=== PATIENT | male | born 1955 | race Caucasian/White ===

== ENCOUNTER 2016-11-28 09:40 | Emergency (ER) | payer OTHER ==
--- NOTE | 2016-11-28 09:42 | PDOC ---
History of Present Illness - General Chief Complaint: Injury Stated Complaint: FELL, STRUCK HEAD Time Seen by Provider: 11/28/16 09:42 History Source: Patient, Parent(s) Exam Limitations: No Limitations - History of Present Illness Initial Comments: 61 yo M history TBI, DM, chronic back pain presents s/p fall. He states that he was putting on his back brace this morning, slipped and fell as he was putting it on. He hit his head on an iron radiator. He c/o mild pain to the occiput. No new onset weakness, numbness. He has chronic slurred speech, RLE weakness, unchanged. No LOC, no neck pain, no nausea, no vomiting. Past History - Past Medical History Allergies/Adverse Reactions: Allergies Allergy/AdvReac Type Severity Reaction Status Date / Time No Known Allergies Allergy Verified 11/28/16 09:48 Home Medications: Ambulatory Orders Atorvastatin Ca [Lipitor] 10 mg PO HS 08/30/13 Cholecalciferol (Vitamin D3) [Vitamin D3] 1,000 unit PO DAILY 08/30/13 Divalproex [Depakote -] 1,000 mg PO BID 08/30/13 Sitagliptin Phos/Metformin HCl [Janumet 50-1,000 mg Tablet] 1 tab PO BID Ascorbate Calcium [Vitamin C] 500 mg PO DAILY 02/20/15 Acetaminophen [Tylenol Extra Strength] 500 mg PO Q6H PRN 11/28/16 Insulin Glargine,Hum.rec.anlog [Lantus Solostar PEN (NF)] 10 units SQ HS Insulin Glargine,Hum.rec.anlog [Lantus Solostar PEN (NF)] 30 ml SQ DAILY Nicotine Patch [Nicoderm Patch -] 1 patch TD DAILY 11/28/16 Anemia: No Asthma: No Cancer: No Cardiac Disorders: No CVA: No COPD: No CHF: No Dementia: No Diabetes: Yes GI Disorders: No Disorders: No HTN: No Hypercholesterolemia: Yes Liver Disease: No Seizures: Yes (14 years ago) Thyroid Disease: No - Surgical History Abdominal Surgery: Yes (HERNIA,FAMILY STATES PT HAD RIGHT FEM-POP BYPASS 1998?) Appendectomy: Yes Cardiac Surgery: No Cholecystectomy: No Lung Surgery: No Neurologic Surgery: No Orthopedic Surgery: Yes - Suicide/Smoking/Psychosocial Hx Smoking Status: Yes Smoking History: Current every day smoker Have you smoked in the past 12 months: Yes Number of Cigarettes Smoked Daily: 3 'Breaking Loose' booklet given: 09/02/13 Hx Alcohol Use: No Drug/Substance Use Hx: No Substance Use Type: None Hx Substance Use Treatment: No Review of Systems - Review of Systems Able to Perform ROS?: Yes Comments:: GENERAL/CONSTITUTIONAL: No fever or chills. No weakness. HEAD, EYES, EARS, NOSE AND THROAT: No change in vision. No ear pain or discharge. No sore throat. CARDIOVASCULAR: No chest pain or shortness of breath. RESPIRATORY: No cough, wheezing, or hemoptysis. GASTROINTESTINAL: No nausea, vomiting, diarrhea or constipation. GENITOURINARY: No dysuria, frequency, or change in urination. MUSCULOSKELETAL: No joint or muscle swelling or pain. No neck or back pain. SKIN: No rash NEUROLOGIC: Mild headache. No vertigo, loss of consciousness, or change in strength/sensation. ENDOCRINE: No increased thirst. No abnormal weight change. HEMATOLOGIC/LYMPHATIC: No anemia, easy bleeding, or history of blood clots. ALLERGIC/IMMUNOLOGIC: No hives or skin allergy. *Physical Exam - Physical Exam Comments: GENERAL: Awake, alert, and fully oriented, in no acute distress HEAD: No signs of trauma. +Tenderness to the occiput, no visible hematoma. EYES: PERRLA, EOMI, sclera anicteric, conjunctiva clear ENT: Auricles normal inspection, hearing grossly normal, nares patent, oropharynx clear without exudates. Moist mucosa NECK: Normal ROM, supple, no lymphadenopathy, JVD, or masses. No midline tenderness. LUNGS: Breath sounds equal, clear to auscultation bilaterally. No wheezes, and no crackles HEART: Regular rate and rhythm, normal S1 and S2, no murmurs, rubs or gallops ABDOMEN: Soft, nontender, normoactive bowel sounds. No guarding, no rebound. No masses EXTREMITIES: Normal range of motion, no edema. No clubbing or cyanosis. No cords , erythema, or tenderness NEUROLOGICAL: Cranial nerves II through XII grossly intact. Normal speech, normal gait SKIN: Warm, Dry, normal turgor, no rashes or lesions noted. Medical Decision Making - Medical Decision Making 11/28/16 11:22 CTH reviewed. No acute changes. +Encephalomalacia c/w prior history TBI. *DC/Admit/Observation/Transfer Diagnosis at time of Disposition: Head injury Qualifiers: Encounter type: initial encounter Qualified Code(s): S09.90XA - Unspecified injury of head, initial encounter - Discharge Dispostion Disposition: HOME Condition at time of disposition: Stable Admit: No - Referrals Referrals: Clay Maher MD [Primary Care Provider] - - Patient Instructions Printed Discharge Instructions: DI for Closed Head Injury
[2016-11-28 10:11] VITALS: BP 119/78; PULSE 89; TEMP 99; BMI 27.1
[2016-11-28] MEDS ORDERED: ACETAMINOPHEN 325 MG TABLET (FP) PO ONE (10:24)
[2016-11-28] MEDS ORDERED: ACETAMINOPHEN 325 MG TABLET (FP) ONE (10:26)
== END 2016-11-28 11:16 | disposition home or self-care (01) ==
LOC: FER 09:40
DX: S09.90XA Unspecified injury of head, initial encounter (principal); W18.39XA Other fall on same level, initial encounter; Y93.89 Activity, other specified; Y92.9 Unspecified place or not applicable; E11.9 Type 2 diabetes mellitus without complications; F17.210 Nicotine dependence, cigarettes, uncomplicated
CPT/HCPCS: 70450-TC; 99283-25

== ENCOUNTER 2016-12-16 12:02 | Emergency (ER) | payer OTHER ==
--- NOTE | 2016-12-16 12:08 | PDOC ---
History of Present Illness - General Chief Complaint: Injury Stated Complaint: BACK,BLE PAIN Time Seen by Provider: 12/16/16 12:08 History Source: Patient - History of Present Illness Initial Comments: 61 year old male with PMH of TBI (20 years prior residual retrograde and slight anterograde amnesia), DM, chronic back pain presents s/p fall. He tripped down two stairs in his home and landed on his right shoulder. Denied LOC , or head trauma. He was able to immediately get up and ambulate without difficulty. He is presenting today because he had difficulty walking after smoking while on the toilet this AM. His mother is his legal guardian because of his TBI deficits. His main complaint is back pain and leg pain but he admits that it is not actually worse than before. He has chronic slurred speech at baseline and is a poor historian. Denies fevers, chills, nausea, vomiting, diarrhea, or other sick symptoms. 12/16/16 13:51 Past History - Past Medical History Allergies/Adverse Reactions: Allergies Allergy/AdvReac Type Severity Reaction Status Date / Time No Known Allergies Allergy Verified 12/16/16 12:07 Home Medications: Ambulatory Orders Atorvastatin Ca [Lipitor] 10 mg PO HS 08/30/13 Cholecalciferol (Vitamin D3) [Vitamin D3] 1,000 unit PO DAILY 08/30/13 Divalproex [Depakote -] 1,000 mg PO BID 08/30/13 Sitagliptin Phos/Metformin HCl [Janumet 50-1,000 mg Tablet] 1 tab PO BID Ascorbate Calcium [Vitamin C] 500 mg PO DAILY 02/20/15 Acetaminophen [Tylenol Extra Strength] 500 mg PO Q6H PRN 11/28/16 Insulin Glargine,Hum.rec.anlog [Lantus Solostar PEN (NF)] 10 units SQ HS Insulin Glargine,Hum.rec.anlog [Lantus Solostar PEN (NF)] 30 ml SQ DAILY Nicotine Patch [Nicoderm Patch -] 1 patch TD DAILY 11/28/16 Anemia: No Asthma: No Cancer: No Cardiac Disorders: No CVA: No COPD: No CHF: No Dementia: No Diabetes: Yes GI Disorders: No Disorders: No HTN: No Hypercholesterolemia: Yes Liver Disease: No Psychiatric Problems: Yes (ANXIETY, DEPRESSION) Seizures: Yes (14 years ago) Thyroid Disease: No - Surgical History Abdominal Surgery: Yes (HERNIA,FAMILY STATES PT HAD RIGHT FEM-POP BYPASS 1998?) Appendectomy: Yes Cardiac Surgery: No Cholecystectomy: No Lung Surgery: No Neurologic Surgery: No Orthopedic Surgery: Yes - Suicide/Smoking/Psychosocial Hx Smoking Status: Yes Smoking History: Current every day smoker Have you smoked in the past 12 months: Yes Number of Cigarettes Smoked Daily: 3 'Breaking Loose' booklet given: 09/02/13 Hx Alcohol Use: No Drug/Substance Use Hx: No Substance Use Type: None Hx Substance Use Treatment: No Review of Systems - Review of Systems Constitutional: No: Chills, Fever HEENTM: No: Blurred Vision Respiratory: No: Cough Cardiac (ROS): No: Chest Pain, Edema ABD/GI: No: Constipated, Diarrhea, Nausea, Vomiting : No: Burning Integumentary: No: Bruising Neurological: No: Headache, Numbness, Paresthesia *Physical Exam - Physical Exam General Appearance: Yes: Nourished, Appropriately Dressed. No: Apparent Distress HEENT: positive: EOMI. negative: Normal Voice (Slurred speech) Neck: positive: Trachea midline, Normal Thyroid. negative: Tender Respiratory/Chest: positive: Lungs Clear. negative: Chest Tender, Normal Breath Sounds (Prolonged expiratory phase with mediocre air movement.), Respiratory Distress Cardiovascular: positive: Regular Rhythm, Regular Rate, S1, S2. negative: Murmur Gastrointestinal/Abdominal: positive: Normal Bowel Sounds, Flat, Soft. negative : Tender Musculoskeletal: positive: Vertebral Tenderness (L4-L5 vertebral tenderness). negative: Normal Inspection, CVA Tenderness Extremity: positive: Normal Inspection, Normal Range of Motion Integumentary: positive: Normal Color, Dry, Warm Neurologic: positive: housesmith II-XII NML intact, Alert, Normal Response, Motor Strength 5/5 Medical Decision Making - Medical Decision Making 61 year old male with neurocognitive disorder s/p TBI 20 years prior presenting one day after a fall down two stairs without LOC. CT head negative, L -S Spine film showing some L4 disk height loss with some L4-L5 degeneration with L5-S1 degeneration. No acute intervention needed. The patient was ambulatory without difficulty directly prior to discharge and without complaints. 12/16/16 16:28 *DC/Admit/Observation/Transfer Diagnosis at time of Disposition: Back pain at L4-L5 level Leg pain Qualifiers: Laterality: bilateral Qualified Code(s): M79.604 - Pain in right leg - Discharge Dispostion Disposition: HOME Condition at time of disposition: Improved Admit: No - Patient Instructions Printed Discharge Instructions: Low Back Pain Additional Instructions: Your Head CT did not show any bleeds or other acute problem. Your back XRay showed some possible compression between the L4 and L5 disks but this may be old findings. You were able to walk without difficulty. Please return if you are having worse pain, loss of control of your bowels or bladder or new numbness / tingling down your legs. Please follow up with your primary care physician if you have any more questions or concerns.
[2016-12-16 12:29] VITALS: BP 109/68; PULSE 92; TEMP 97.9; BMI 27.4
--- NOTE | 2016-12-16 12:42 | PDOC ---
Attending Attestation - Resident Resident Name: Carol Bustos - ED Attending Attestation I have performed the following: I have examined & evaluated the patient, The case was reviewed & discussed with the resident, I agree w/resident's findings & plan, Exceptions are as noted - HPI HPI: 12/16/16 12:38 61-year-old male with a distant history of TBI with some physical disability requiring cane/walker for ambulation, daily aide and under the care of his mother presents with low back pain after mechanical fall down 2 steps yesterday afternoon. He landed on knees and then upper extremities, no head injury or loss of consciousness. The patient was apparently at baseline for the remainder of the day, ambulating normally with his cane/walker and not requiring pain medication beyond his usual Tylenol. Today, patient was complaining of slightly increased low back pain and possible increased difficulty walking, but per aide and mother patient at baseline. no headache/vision change/speech change. no focal weakness. no n/v. - Physicial Exam PE: 12/16/16 12:40 vitals as noted, O2 sat 95% on my examination General: Patient is alert and in no acute distress. Speech is clear and appropriate. Head: Atraumatic and nontender. HEENT: Pupils are equal round and reactive to light, extraocular movements are intact. No facial deformity/tenderness, no septal hematoma. The oropharynx is clear. Neck: The trachea is midline, there is no stridor. There is no midline cervical spine tenderness, full range of motion of neck. Chest: Nontender, no ecchymosis or abrasions. Heart: S1-S2, regular rate and rhythm. No murmurs. Lungs: Clear to auscultation bilaterally. Symmetric chest rise. Abdomen: Soft/nontender/nondistended. Bowel sounds are normal. There is no abdominal or flank ecchymosis. Back/Pelvis: There is no midline spine tenderness or step-off. Pelvis is stable and nontender. Extremities: There is no extremity deformity or joint swelling. No focal bony tenderness throughout. 2+ distal pulses throughout. Neuro: Alert and oriented x3. Cranial nerves II through XII are intact. 5 out of 5 motor strength x4 extremities. Eswbor-ksen-wtzigf is intact. No pronator drift. Gait is stable. Skin: No abrasions/hematomas/lacerations. Psych: Affect is flat. - Medical Decision Making 12/16/16 12:41 61-year-old male with minor injury, complaining of low back pain but neurologically intact. Well-appearing, no evidence of fracture or neurological compromise. Check LS-spine film CT had given history to rule out subdural If above is within normal limits, can be discharged in care of aide and mom. All in agreement. 12/16/16 13:52 ambulating at baseline, neuro intact. ? decreased body height of L4, not commented on previous MRI. CT head without acute pathology. mom and aide at bedside, they and patient want to go home, feels well. Understands return criteria, will f/u with pmd for any pain control needs.
== END 2016-12-16 13:55 | disposition home or self-care (01) ==
LOC: FER 12:02
DX: M79.604 Pain in right leg (principal); S06.9X0A Unspecified intracranial injury without loss of consciousness, initial encounter; R47.81 Slurred speech; E78.00 Pure hypercholesterolemia, unspecified; F41.8 Other specified anxiety disorders; E11.9 Type 2 diabetes mellitus without complications; F17.210 Nicotine dependence, cigarettes, uncomplicated; W10.9XXA Fall (on) (from) unspecified stairs and steps, initial encounter; Y93.89 Activity, other specified; Y92.9 Unspecified place or not applicable
CPT/HCPCS: 70450-TC; 72100-TC; 99281-25

== ENCOUNTER 2016-12-19 10:10 | Inpatient (IN) | payer OTHER ==
--- NOTE | 2016-12-19 10:25 | PDOC ---
History of Present Illness - General Chief Complaint: Weakness Stated Complaint: WEAKNESS Time Seen by Provider: 12/19/16 10:13 History Source: Patient, Care Provider Exam Limitations: Clinical Condition - History of Present Illness Initial Comments: 12/19/16 11:08 61M with pmh of Traumatic Brain Injury and DM2. Caregiver Nurse called EMS after she found him with altered mental status, taking a bath on his own, and with fan broken on the floor. Patient can usually get out of the bathtub with her help but wasn't able to do so this time which worried her and called AMS. Patient usually has caregiver 9 hours a day but was left on his own all day yesterday. Caregiver states that she prepared food for him the day before yesterday that was left untouched and he also didn't take any of his medication yesterday and today. Patient on metformin and depakote 12/19/16 11:37 Past History - Past Medical History Allergies/Adverse Reactions: Allergies Allergy/AdvReac Type Severity Reaction Status Date / Time No Known Allergies Allergy Verified 12/19/16 10:12 Home Medications: Ambulatory Orders Atorvastatin Ca [Lipitor] 10 mg PO HS 08/30/13 Cholecalciferol (Vitamin D3) [Vitamin D3] 1,000 unit PO DAILY 08/30/13 Divalproex [Depakote -] 500 mg PO BID 08/30/13 Acetaminophen [Tylenol Extra Strength] 500 mg PO Q6H PRN 11/28/16 Insulin Glargine,Hum.rec.anlog [Lantus Solostar PEN (NF)] 10 units SQ HS Insulin Glargine,Hum.rec.anlog [Lantus Solostar PEN (NF)] 30 ml SQ DAILY Metformin HCl [Glucophage] 1,000 mg PO BID 12/19/16 Anemia: No Asthma: No Cancer: No Cardiac Disorders: No CVA: No COPD: No CHF: No Dementia: No Diabetes: Yes GI Disorders: No Disorders: No HTN: No Hypercholesterolemia: Yes Liver Disease: No Psychiatric Problems: Yes (ANXIETY, DEPRESSION) Seizures: Yes (14 years ago) Thyroid Disease: No - Surgical History Abdominal Surgery: Yes (HERNIA,FAMILY STATES PT HAD RIGHT FEM-POP BYPASS 1998?) Appendectomy: Yes Cardiac Surgery: No Cholecystectomy: No Lung Surgery: No Neurologic Surgery: No Orthopedic Surgery: Yes - Suicide/Smoking/Psychosocial Hx Smoking Status: Yes Smoking History: Unknown if ever smoked Have you smoked in the past 12 months: Yes Number of Cigarettes Smoked Daily: 3 'Breaking Loose' booklet given: 09/02/13 Hx Alcohol Use: No Drug/Substance Use Hx: No Substance Use Type: None Hx Substance Use Treatment: No Review of Systems - Review of Systems Able to Perform ROS?: No (limited due to ams) ABD/GI: No: Symptoms Reported : No: Symptoms Reported Musculoskeletal: No: Symptoms Reported All Other Systems: Reviewed and Negative *Physical Exam - Vital Signs Last Vital Signs Temp Pulse Resp BP Pulse Ox 98.8 F 88 16 113/75 99 12/19/16 10:10 12/19/16 10:10 12/19/16 10:10 12/19/16 10:10 12/19/16 10:10 - Physical Exam General Appearance: Yes: Nourished, Appropriately Dressed. No: Apparent Distress HEENT: positive: EOMI, ELISEO Neck: positive: Tender Respiratory/Chest: positive: Lungs Clear, Normal Breath Sounds. negative: Chest Tender Cardiovascular: positive: Regular Rhythm, Regular Rate, S1, S2 Vascular Pulses: Dorsalis-Pedis (R): 2+, Doralis-Pedis (L): 2+ Gastrointestinal/Abdominal: positive: Normal Bowel Sounds, Flat. negative: Tender Musculoskeletal: positive: Normal Inspection Integumentary: positive: Normal Color, Dry. negative: Erythema, Rash Neurologic: negative: Fully Oriented, Alert ED Treatment Course - LABORATORY CBC & Chemistry Diagram: 12/19/16 11:30 12/19/16 11:30 Medical Decision Making - Medical Decision Making 12/19/16 11:33 61M with pmh of Traumatic Brain Injury and DM2 presents with AMS and questionable fall. Evaluation of stroke vs infection vs hypo/hyperglycemia Fingerstick [address] St[address] score [address] pending CBC, CMP CRX pending UA pending Patient will probablky have to be kept for neuro observation and get MRI 12/19/16 11:33 *DC/Admit/Observation/Transfer Diagnosis at time of Disposition: Rhabdomyolysis, Altered mental status - Discharge Dispostion Condition at time of disposition: Stable Admit: Yes - Referrals Referrals: Andrew Mcbride MD [Primary Care Provider] -
--- NOTE | 2016-12-19 11:10 | PDOC ---
Attending Attestation - Resident Resident Name: Demar Orellana - ED Attending Attestation I have performed the following: I have examined & evaluated the patient, The case was reviewed & discussed with the resident, I agree w/resident's findings & plan, Exceptions are as noted - HPI HPI: 12/19/16 11:05 61-year-old male with past medical history of diabetes, traumatic brain injury on risperidone and Depakote, chronic back pain presents with questionable fall on ground. According to the home health aide, the patient appears more confused and lethargic and potentially slurring his speech than prior. She states that home health services are typically not hours per day but she was unavailable testicular the patient yesterday. The patient was here at the hospital on December [address] head [address] and lumbar spine x-ray done for fall and the patient was discharged. According to the home health aide, the patient was in his usual state health. This morning, the patient was found by the home health aide in the bathtub and with a nearby fan that was smashed. The patient is an unreliable historian and there was question whether not he fell. The patient is AAO 2 and thinks it is 1982. Patient at this time has no complaints area denies fevers, chills, nausea, vomiting, diarrhea. The home health aide attempted to take the patient out of the bathtub but was unable to do so and called 911. - Physicial Exam PE: 12/19/16 11:12 GENERAL: Awake, alert, and oriented x 2 (thinks it's 1982) , in no acute distress. HEAD: No signs of trauma EYES: PERRLA, EOMI, sclera anicteric, conjunctiva clear ENT: Auricles normal inspection, hearing grossly normal, nares patent NECK: Normal ROM, supple, LUNGS: Breath sounds equal, clear to auscultation bilaterally. No wheezes, and no crackles HEART: Regular rate and rhythm, normal S1 and S2, no murmurs, rubs or gallops ABDOMEN: Soft, nontender, normoactive bowel sounds. No guarding, no rebound. No masses EXTREMITIES: Normal range of motion, no edema. No clubbing or cyanosis. No cords, erythema, or tenderness NEUROLOGICAL: Cranial nerves II through XII intact. Speech slow but no obvious slurring. 5/5 strength upper and lower extremities. Sensation intact throughout. FTN normal. Rapid alternating normal. Essential tremors. SKIN: Warm, Dry, normal turgor, no rashes or lesions noted. - Medical Decision Making 12/19/16 11:19 Vital Signs Temp Pulse Resp BP Pulse Ox 98.8 F 88 16 113/75 99 12/19/16 10:10 12/19/16 10:10 12/19/16 10:10 12/19/16 10:10 12/19/16 10:10 61-year-old male with traumatic brain injury and diabetes presents with altered mental status. The patient was left alone yesterday until today. The patient has not been taking his medications nor has he been eating without his home health aide. Today, there was question that he may have fallen. The patient appears according to his home health aide to be slurring his speech. At this time, differential includes infectious etiology such as urinary tract infection , metabolic disarray such as hypo-or hyperglycemia or electrolyte disturbances, cardiac, neurologic including stroke. Time of onset is unclear and not today. He is in eligible for TPA. At this time, we'll obtain a head CT, chest x-ray, labs, urinalysis. Ultimately, the patient is not safe for discharge and would benefit for a stroke and altered mental status workup in the hospital. 12/19/16 12:51 CBC, BMP 12/19/16 11:30 12/19/16 11:30 CMP Sodium 129 mmol/L (136-145) L 12/19/16 11:30 Potassium 4.5 mmol/L (3.5-5.1) 12/19/16 11:30 Chloride 95 mmol/L (98-107) L 12/19/16 11:30 Carbon Dioxide 25 mmol/L (22-28) 12/19/16 11:30 Anion Gap 9 (8-16) 12/19/16 11:30 BUN 11 mg/dl (7-18) D 12/19/16 11:30 Creatinine 0.8 mg/dl (0.6-1.3) D 12/19/16 11:30 Creat Clearance w eGFR > 60 (>60) 12/19/16 11:30 Random Glucose 133 mg/dl (74-106) H 12/19/16 11:30 Calcium 10.2 mg/dl (8.4-10.2) 12/19/16 11:30 Total Bilirubin 1.0 mg/dl (0.2-1.0) 12/19/16 11:30 AST 51 U/L (10-42) H D 12/19/16 11:30 ALT 25 U/L (10-40) D 12/19/16 11:30 Alkaline Phosphatase 59 U/L (32-92) D 12/19/16 11:30 Creatine Kinase 2141 IU/L (39-308) H 12/19/16 11:30 Creatine Kinase Index 0.7 % (0.0-5.0) 12/19/16 11:30 CK-MB (CK-2) 15.2 ng/mL (0.3-4.0) H 12/19/16 11:30 Troponin I 0.05 ng/ml (0.03-0.50) 12/19/16 11:30 Total Protein 7.5 g/dl (6.4-8.3) 12/19/16 11:30 Albumin 4.2 g/dl (3.5-5.0) 12/19/16 11:30 Valproic acid level pending. Head CT reviewed. Demonstrates enlarged ventricles. I have spoken with the patient family. She reports that in the last two months, the patient has become increasingly more confused and increasingly difficulty walking in the last 2 months. Given the head CT findings, will need to consider normal pressure hydrocephalus. Dr. Orellana had called the pt's PMD Dr. Mcbride and is updated on plan. 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 Should consider potential stroke within the differential. Pt will be admitted to the hospital for further workup. Heart Score/ECG Review #1 ECG reviewed & interpreted by me at: 11:00 12/19/16 11:04 NSR 82, no std/liliane, normal axis, normal intervals, QTC 432 msec. no brugada, no HOCM, no WPW NIH Stroke Scale - Last Known Well Date/Time & Onset Date Last Known Well: 12/17/16 - Initial Evaluation Level of consciousness: Alert Ask patient the month and their age: Answers one correctly Ask patient to open & close eyes; make fist and let go: Obeys both correctly Best gaze (horizontal eye movement): Normal Visual field testing: No visual field loss Facial paresis (Show teeth/raise eyebrows/close eyes tight): Normal symmetrical movement Motor Function: Left Arm: Normal Motor Function: Right Arm: Normal (extends arm 90 (or 45) degrees for 10 seconds without drift Motor Function: Left Leg: Normal (extends leg 30 degrees for 5 seconds without drift) Motor Function: Right Leg: Normal (extends leg 30 degrees for 5 seconds without drift) Limb Ataxia: No ataxia Sensory(Use pinprick test arms,legs,trunk,face/side to side): Normal Best language (Describe picture, name items, read sentences): No Aphasia Dysarthria (read several words): Mild to moderate slurring of words Extinction and Inattention: No abnormality - Total Score NIH Stroke Scale Score: 2
[2016-12-19 11:49] LABS: BASOPHIL 0.6 % (0-2.0); EOSINOPHIL 0.3 % (0-4.5); MCH 31.4 pg (25.7-33.7); MCHC 33.7 g/dl (32.0-35.9); MEAN PLT VOLUME 9.2 fl (7.5-11.1); NEUTROPHILS 75.8 % (42.8-82.8); PLATELET COUNT 336 K/MM3 (134-434); RDW 12.4 % (11.9-15.9); WHITE BLOOD COUNT 11.1 K/mm3 (4.0-10.8)
[2016-12-19 11:59] LABS: ALBUMIN 4.2 g/dl (3.5-5.0); ALK PHOS 59 U/L (32-92); ANION GAP 9 (8-16); CALCIUM 10.2 mg/dl (8.4-10.2); CO2 25 mmol/L (22-28); CREATININE 0.8 mg/dl (0.6-1.3); GLUCOSE,RANDOM 133 mg/dl (74-106); SGOT/AST 51 U/L (10-42); SGPT/ALT 25 U/L (10-40); TOT PROT 7.5 g/dl (6.4-8.3)
[2016-12-19 12:13] LABS: TROPONIN I (DFP) 0.05 ng/ml (0.03-0.50)
[2016-12-19] MEDS ORDERED: SODIUM CHLORIDE 1,000 ML IV STA ×2 (12:24→14:02)
[2016-12-19 12:28] LABS: CPK 2141 IU/L (39-308)
[2016-12-19] MEDS ORDERED: NICOTINE 21 MG/24 HOURS TOPICAL PATCH TD SCH ×2 (13:30→16:30)
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
[2016-12-19] MEDS ORDERED: HALOPERIDOL LACTATE 5 MG/ML IM ONE (14:09)
[2016-12-19] MEDS ORDERED: HALOPERIDOL LACTATE 5 MG/ML ONE (14:11)
[2016-12-19] MEDS ORDERED: LORazepam 2 MG/ML SDV VIAL ONE (14:12)
[2016-12-19 15:23] LABS: URINE APPEARANCE Clear; URINE BILIRUBIN Negative (NEGATIVE); URINE BLOOD Negative (NEGATIVE); URINE GLUCOSE (UA) 2+ (NEGATIVE); URINE KETONE 1+ (NEGATIVE); URINE LEUK ESTERASE Negative (NEGATIVE); URINE NITRITE Negative (NEGATIVE); URINE PROTEIN Negative (NEGATIVE)
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
[2016-12-19 15:36] LABS: URINE COLOR YELLOW
[2016-12-19 16:49] VITALS: BMI 28.2
[2016-12-19] MEDS ORDERED: INSULIN (NOVOLOG) ASPART 100 UNITS/ML 10ML VIAL ONE ×2 (17:06→21:32)
[2016-12-19] MEDS: INSULIN SLIDING SCALE (NOVOLOG) 1 VIAL SQ SCH ×2 (17:08→21:31)
[2016-12-19] MEDS: SODIUM CHLORIDE 1,000 ML IV SCH (17:15)
[2016-12-19 18:26] LABS: TROPONIN I (DFP) 0.05 ng/ml (0.03-0.50)
[2016-12-19 18:33] LABS: URINE MARIJUANA THC NEGATIVE ng/ml (CUTOFF=50)
[2016-12-19] MEDS: DIVALPROEX SODIUM 500 MG TABLET E.C. PO SCH (21:29)
[2016-12-19] MEDS: INSULIN DETEMIR 100 UNITS/ML MDV SQ SCH (21:30)
[2016-12-19] MEDS: HEPARIN NA (PORCINE) 5,000 UNITS/ML 1ML VIAL SQ SCH (21:30)
[2016-12-19] MEDS ORDERED: ATORVASTATIN CA 10 MG TABLET (FP) PO SCH (22:00)
[2016-12-19] MEDS ORDERED: PATIENT'S OWN MEDICATION (NON-FORMULARY) (Insulin Glargine,Hum.Rec.Anlog 10 UNITS) SQ SCH (22:00)
[2016-12-19 23:48] LABS: TROPONIN I (DFP) 0.05 ng/ml (0.03-0.50)
[2016-12-20] MEDS: INSULIN SLIDING SCALE (NOVOLOG) 1 VIAL SQ SCH ×4 (06:25→22:29)
[2016-12-20 07:44] LABS: EOSINOPHIL 2.2 % (0-4.5); MCH 31.4 pg (25.7-33.7); MCHC 33.4 g/dl (32.0-35.9); MEAN PLT VOLUME 9.4 fl (7.5-11.1); NEUTROPHILS 55.6 % (42.8-82.8); PLATELET COUNT 273 K/MM3 (134-434); WHITE BLOOD COUNT 8.4 K/mm3 (4.0-10.8)
[2016-12-20 07:47] LABS: INR 1.13 (0.82-1.09); PROTHROMBIN TIME (PATIENT) 12.6 SEC (10.2-13.0)
[2016-12-20 08:12] LABS: ALBUMIN 3.2 g/dl (3.5-5.0); ALK PHOS 47 U/L (32-92); ANION GAP 7 (8-16); BILIRUBIN,TOTAL 0.6 mg/dl (0.2-1.0); CALCIUM 8.9 mg/dl (8.4-10.2); CHOLESTEROL 142 mg/dl; CO2 24 mmol/L (22-28); CREATININE 0.8 mg/dl (0.6-1.3); GLUCOSE,RANDOM 108 mg/dl (74-106); MAGNESIUM 1.7 mg/dL (1.8-2.4); PHOSPHOROUS 3.4 mg/dl (2.5-4.6); SGOT/AST 31 U/L (10-42); SGPT/ALT 21 U/L (10-40); TOT PROT 6.1 g/dl (6.4-8.3)
[2016-12-20] MEDS ORDERED: INSULIN GLARGINE SQ SCH (10:00)
[2016-12-20] MEDS ORDERED: NICOTINE 14 MG/24 HOURS TOPICAL PATCH TD SCH (10:00)
[2016-12-20] MEDS: INSULIN DETEMIR 100 UNITS/ML MDV SQ SCH ×2 (10:50→22:29)
[2016-12-20] MEDS: CHOLECALCIFEROL (VITAMIN D3) 1,000 UNIT TABLET (FP) PO SCH (10:51)
[2016-12-20] MEDS: HEPARIN NA (PORCINE) 5,000 UNITS/ML 1ML VIAL SQ SCH ×2 (10:51→22:29)
[2016-12-20] MEDS: RANITIDINE HCL 150 MG TABLET (FP) PO SCH (10:51)
[2016-12-20] MEDS: ASPIRIN COATED 81 MG TABLET.EC PO SCH (10:51)
[2016-12-20] MEDS: DIVALPROEX SODIUM 500 MG TABLET E.C. PO SCH ×2 (10:51→22:29)
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
[2016-12-20] MEDS ORDERED: INSULIN (NOVOLOG) ASPART 100 UNITS/ML 10ML VIAL ONE ×2 (13:54→22:36)
[2016-12-20] MEDS ORDERED: MAGNESIUM SULF 50% (8.12 MEQ/2 ML-1 GM VIAL) IVPB ONE (14:30)
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
[2016-12-20] MEDS: SODIUM CHLORIDE 1,000 ML IV SCH (16:00)
[2016-12-21] MEDS: INSULIN SLIDING SCALE (NOVOLOG) 1 VIAL SQ SCH ×4 (06:16→21:28)
[2016-12-21 09:10] LABS: BASOPHIL 0.3 % (0-2.0); EOSINOPHIL 2.8 % (0-4.5); MCH 31.7 pg (25.7-33.7); MCHC 33.8 g/dl (32.0-35.9); MEAN CELL VOLUME 93.8 fl (80-96); MEAN PLT VOLUME 9.8 fl (7.5-11.1); NEUTROPHILS 50.7 % (42.8-82.8); PLATELET COUNT 270 K/MM3 (134-434); RDW 12.9 % (11.9-15.9); WHITE BLOOD COUNT 8.5 K/mm3 (4.0-10.8)
[2016-12-21 09:29] LABS: ALBUMIN 3.2 g/dl (3.5-5.0); ALK PHOS 46 U/L (32-92); ANION GAP 4 (8-16); BILIRUBIN,TOTAL 0.6 mg/dl (0.2-1.0); CALCIUM 9.1 mg/dl (8.4-10.2); CO2 27 mmol/L (22-28); CREATININE 0.8 mg/dl (0.6-1.3); GLUCOSE,RANDOM 83 mg/dl (74-106); MAGNESIUM 1.8 mg/dL (1.8-2.4); SGOT/AST 27 U/L (10-42); SGPT/ALT 20 U/L (10-40); TOT PROT 5.9 g/dl (6.4-8.3)
[2016-12-21] MEDS: RANITIDINE HCL 150 MG TABLET (FP) PO SCH (11:02)
[2016-12-21] MEDS: CHOLECALCIFEROL (VITAMIN D3) 1,000 UNIT TABLET (FP) PO SCH (11:02)
[2016-12-21] MEDS ORDERED: risperiDONE 0.5 MG TABLET (FP) PO PRN (11:02)
[2016-12-21] MEDS: ASPIRIN COATED 81 MG TABLET.EC PO SCH (11:02)
[2016-12-21] MEDS: HEPARIN NA (PORCINE) 5,000 UNITS/ML 1ML VIAL SQ SCH ×2 (11:03→21:27)
[2016-12-21] MEDS: INSULIN DETEMIR 100 UNITS/ML MDV SQ SCH ×2 (11:03→21:27)
[2016-12-21] MEDS: DIVALPROEX SODIUM 500 MG TABLET E.C. PO SCH ×2 (11:03→21:27)
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
[2016-12-21] MEDS: ACETAMINOPHEN 500 MG TABLET (FP) PO PRN (11:19)
[2016-12-21 11:23] LABS: THYROID STIMULATING HORMONE 1.06 uIU/ml (0.358-3.74)
[2016-12-21] MEDS ORDERED: SODIUM CHLORIDE 1,000 ML IV SCH ×2 (11:34→15:51)
[2016-12-21] MEDS ORDERED: risperiDONE 0.25 MG TABLET (FP) PO PRN (11:50)
[2016-12-21 14:47] LABS: CPK 457 IU/L (39-308)
[2016-12-21] MEDS ORDERED: HALOPERIDOL LACTATE 5 MG/ML IM ONE (15:48)
[2016-12-21] MEDS ORDERED: INSULIN (NOVOLOG) ASPART 100 UNITS/ML 10ML VIAL ONE (21:23)
[2016-12-22] MEDS: ACETAMINOPHEN 500 MG TABLET (FP) PO PRN (00:26)
[2016-12-22] MEDS: INSULIN SLIDING SCALE (NOVOLOG) 1 VIAL SQ SCH ×3 (06:57→17:08)
[2016-12-22] MEDS: DIVALPROEX SODIUM 500 MG TABLET E.C. PO SCH (09:39)
[2016-12-22] MEDS: HEPARIN NA (PORCINE) 5,000 UNITS/ML 1ML VIAL SQ SCH (09:39)
[2016-12-22] MEDS: ASPIRIN COATED 81 MG TABLET.EC PO SCH (09:39)
[2016-12-22] MEDS: RANITIDINE HCL 150 MG TABLET (FP) PO SCH (09:40)
[2016-12-22] MEDS: CHOLECALCIFEROL (VITAMIN D3) 1,000 UNIT TABLET (FP) PO SCH (09:40)
[2016-12-22] MEDS: INSULIN DETEMIR 100 UNITS/ML MDV SQ SCH (09:40)
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
[2016-12-22] MEDS ORDERED: INSULIN (NOVOLOG) ASPART 100 UNITS/ML 10ML VIAL ONE ×2 (11:37→17:06)
[2016-12-22] MEDS ORDERED: PNEUMOCOCCAL 23 VACCINE 0.5 ML VIAL IM ONE (13:15)
[2016-12-22 16:56] VITALS: BP 130/78; PULSE 72; TEMP 9707
--- NOTE | 2016-12-23 18:36 | EKG ---
Test Reason : Blood Pressure : / mmHG Vent. Rate : 082 BPM Atrial Rate : 082 BPM P-R Int : 186 ms QRS Dur : 080 ms QT Int : 370 ms P-R-T Axes : 054 028 050 degrees QTc Int : 432 ms NORMAL SINUS RHYTHM NORMAL ECG NO PREVIOUS ECGS AVAILABLE REPEAT EKG IF CLINICALLY INDICATED Confirmed by FELIZ GOULD MD ([id number]) on 12/23/2016 6:35:53 PM Referred By: RACHEL FELICIANO Confirmed By:FELIZ GOULD MD
== END 2016-12-22 18:12 | DRG 557 ==
LOC: FER 10:10 → FM/S 13:42
PROVIDERS: ADMIT Internal Medicine; ATTEND Nurse Practitioner Family
DX: M62.82 Rhabdomyolysis (principal); G93.41 Metabolic encephalopathy; E87.1 Hypo-osmolality and hyponatremia; G40.89 Other seizures; E86.1 Hypovolemia; E11.9 Type 2 diabetes mellitus without complications; Z79.4 Long term (current) use of insulin; Z87.820 Personal history of traumatic brain injury; E78.5 Hyperlipidemia, unspecified; F32.9 Major depressive disorder, single episode, unspecified; F41.9 Anxiety disorder, unspecified; F17.210 Nicotine dependence, cigarettes, uncomplicated; R29.6 Repeated falls
CPT/HCPCS: 36415; 70450-TC; 71010-TC; 72100-TC; 80053; 80061; 80164; 80307; 81003; 82140; 82533; 82550; 82553; 82607; 83036; 83721; 83735; 83874; 84100; 84443; 84484; 85025; 85610; 87086; 93005; 93306-TC; 93880-TC; 97116-GP; 99281-25; 99285-25; J1644

== ENCOUNTER 2017-01-14 14:52 | Emergency (ER) | payer OTHER ==
[2017-01-14 15:36] VITALS: TEMP 98.3; BMI 27.4
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
[2017-01-14 17:13] LABS: EOSINOPHIL 2.5 % (0-4.5); MCH 31.9 pg (25.7-33.7); MEAN CELL VOLUME 93.9 fl (80-96); MEAN PLT VOLUME 8.9 fl (7.5-11.1); NEUTROPHILS 57.7 % (42.8-82.8); PLATELET COUNT 275 K/MM3 (134-434); RDW 13.5 % (11.9-15.9)
[2017-01-14] MEDS ORDERED: HALOPERIDOL DECANOATE 100 MG/ML IM ONE (17:31)
[2017-01-14] MEDS ORDERED: HALOPERIDOL LACTATE 5 MG/ML ONE ×2 (17:33→19:54)
[2017-01-14 17:50] LABS: ALBUMIN 3.7 g/dl (3.4-5.0); ALK PHOS 70 U/L (45-117); ANION GAP 4 (8-16); BILIRUBIN,TOTAL 0.3 mg/dL (0.2-1.0); CALCIUM 9.2 mg/dL (8.5-10.1); CO2 30 mmol/L (21-32); CREATININE 1.1 mg/dL (0.7-1.3); GLUCOSE,RANDOM 193 mg/dL (74-106); SGOT/AST 10 U/L (15-37); SGPT/ALT 18 U/L (12-78); TOT PROT 7.5 g/dl (6.4-8.2)
[2017-01-14 17:55] LABS: URINE APPEARANCE CLEAR; URINE BILIRUBIN NEGATIVE (NEGATIVE); URINE BLOOD NEGATIVE (NEGATIVE); URINE COLOR STRAW; URINE GLUCOSE (UA) 1+ (NEGATIVE); URINE KETONE NEGATIVE (NEGATIVE); URINE NITRITE NEGATIVE (NEGATIVE); URINE PROTEIN NEGATIVE (NEGATIVE); URINE UROBILINOGEN NEGATIVE mg/dL (0.2-1.0)
[2017-01-14 18:46] VITALS: BP 130/88; PULSE 64
[2017-01-14] MEDS ORDERED: HALOPERIDOL LACTATE 5 MG/ML IM ONE (19:35)
[2017-01-14 21:00] LABS: URINE LEUK ESTERASE Negative (NEGATIVE)
--- NOTE | 2017-01-15 21:55 | EKG ---
Test Reason : Blood Pressure : / mmHG Vent. Rate : 074 BPM Atrial Rate : 074 BPM P-R Int : 208 ms QRS Dur : 076 ms QT Int : 378 ms P-R-T Axes : 054 019 042 degrees QTc Int : 419 ms SINUS RHYTHM WITH 1ST DEGREE A-V BLOCK WITH OCCASIONAL and consecutive PREMATURE VENTRICULAR COMPLEXES ABNORMAL ECG WHEN COMPARED WITH ECG OF 19-DEC-2016 11:03, [place] INTERVAL HAS INCREASED Confirmed by BONNIE VERDE, LATIA ([id number]) on 01/15/2017 9:55:22 PM Referred By: Confirmed By:LATIA NICOLE MD
== END 2017-01-14 23:03 ==
LOC: JER 14:52
PROC: 3E023NZ Introduction of Analgesics, Hypnotics, Sedatives into Muscle, Percutaneous Approach (ICD-10-PCS; principal; 2017-01-14)
PROC: 3E023NZ Introduction of Analgesics, Hypnotics, Sedatives into Muscle, Percutaneous Approach (ICD-10-PCS; 2017-01-14)
PROC: 3E033NZ Introduction of Analgesics, Hypnotics, Sedatives into Peripheral Vein, Percutaneous Approach (ICD-10-PCS; 2017-01-14)
DX: R41.82 Altered mental status, unspecified (principal); F91.8 Other conduct disorders; W18.39XA Other fall on same level, initial encounter; Y93.89 Activity, other specified; Y92.122 Bedroom in nursing home as the place of occurrence of the external cause; Z11.9 Encounter for screening for infectious and parasitic diseases, unspecified; Z79.4 Long term (current) use of insulin; Z79.84 Long term (current) use of oral hypoglycemic drugs; M54.5 Low back pain; G89.29 Other chronic pain; E78.00 Pure hypercholesterolemia, unspecified; Z87.820 Personal history of traumatic brain injury
CPT/HCPCS: 36415; 70450-TC; 80053; 80164; 81003; 85025; 93005; 93010; 99283-25